=== PATIENT | female | born 1995 | race Caucasian/White ===

== ENCOUNTER 2022-05-29 20:52 | Emergency (ER) | payer OTHER ==
[2022-05-29 21:04] VITALS: BP 102/70; PULSE 76; RESP 17; TEMP 98.1; BMI 21.5
[2022-05-29] MEDS ORDERED: ACETAMINOPHEN 1000 MG/100 ML BAG IVPB ONE (21:42)
[2022-05-29] MEDS ORDERED: ACETAMINOPHEN INJECTION 100 ML IVPB ONE (22:26)
[2022-05-29 22:30] LABS: BASO % 0.2 % (0-2.0); EOS % 0.4 % (0-4.5); HEMATOCRIT 42.5 % (32.4-45.2); HEMOGLOBIN 14.1 GM/dL (10.7-15.3); LYMPH % 6.8 % (8-40); MCH 28.8 pg (25.7-33.7); MCHC 33.1 g/dl (32.0-36.0); MEAN CELL VOLUME 86.8 fl (80-96); MEAN PLT VOLUME 8.8 fl (7.5-11.1); MONO % 6.1 % (3.8-10.2); NEUT % 86.5 % (42.8-82.8); PLATELET COUNT 125 10^3/uL (134-434); RDW 13.4 % (11.6-15.6); WHITE BLOOD COUNT 9.7 K/mm3 (4.0-10.0)
[2022-05-29 22:55] LABS: CHLORIDE 107 mmol/L (98-107); SODIUM 139 mmol/L (136-145)
[2022-05-29 22:57] LABS: ALBUMIN 4.2 g/dl (3.4-5.0); ANION GAP 6 MMOL/L (8-16); BLOOD UREA NITROGEN 8.8 mg/dL (7-18); CO2 26 mmol/L (21-32); GLUCOSE,RANDOM 112 mg/dL (74-106); LIPASE 113 U/L (73-393); MAGNESIUM 2.1 mg/dL (1.8-2.4)
[2022-05-29 23:00] LABS: CREATININE 0.6 mg/dL (0.55-1.3); SGOT/AST 24 U/L (15-37); SGPT/ALT 22 U/L (13-61)
[2022-05-29 23:02] LABS: BILIRUBIN,TOTAL 0.9 mg/dL (0.2-1); TOT PROT 7.1 g/dl (6.4-8.2)
[2022-05-29 23:03] LABS: ALK PHOS 66 U/L (45-117)
[2022-05-29 23:05] LABS: N-TERMINAL BNP 366.2 pg/ml (5-125)
== END 2022-05-30 00:12 | disposition left against medical advice (07) ==
LOC: JER 20:52
PROC: 3E0333Z Introduction of Anti-inflammatory into Peripheral Vein, Percutaneous Approach (ICD-10-PCS; principal; 2022-05-29)
DX: R10.11 Right upper quadrant pain (principal); K80.80 Other cholelithiasis without obstruction; R07.9 Chest pain, unspecified
CPT/HCPCS: 36415; 71045-TC-FY; 76705-TC; 80053; 83690; 83735; 83880; 84484; 84703; 85025; 85379; 93005; 93010; 99285-25